=== PATIENT | female | born 1940 | race Caucasian/White ===

== ENCOUNTER 2024-11-07 21:05 | Emergency (ER) | payer OTHER, SELFPAY ==
[2024-11-07 21:47] VITALS: BP 181/102; PULSE 114; RESP 17; TEMP 36.7; O2SAT 98
--- NOTE | 2024-11-07 22:04 | XR_ITS ---
Examination: CT cervical spine without contrast 2-D sagittal reconstructions 2-D coronal reconstructions 3-D reconstructions. Exam date and time:November 07, 2024 11:50 PM INDICATIONS: Patient fell today with injury to the neck, neck pain CTDI:vol (mGy) 9 DLP: (mGycm) 198 Technique: Multiple 2 mm axial sections of the cervical spine have been obtained. The coronal and sagittal reconstructions have been obtained. 3-D reconstructions have been obtained. Low dose protocols were performed. One or more of the following dose reduction techniques were used; automated exposure control, adjustment of the mA and/or KV according to patient size, use of iterative reconstruction technique. Findings: Axial sections demonstrate intact base of the skull. C1 exhibit satisfactory relationship to the odontoid. No acute cervical vertebral body fracture seen. Alignment posterior spinous processes satisfactory. Impression: No acute cervical fracture.
--- NOTE | 2024-11-07 22:04 | XR_ITS ---
Examination: CT brain head without contrast. 2-D sagittal coronal reconstructions Date and time of exam:November 07, 2024 11:50 PM Comparison May 17, 2020 INDICATIONS: Patient fell today with image of the head, head pain CTDI: vol (mGy):53 DLP: (mGycm):1114 Technique: Multiple CT axial sections of the brain have been obtained, 5 mm slice thickness. Contrast has not been administered. 2-D sagittal, coronal reconstructions have been obtained Low dose protocols were performed. One or more of the following dose reduction techniques were used; automated exposure control, adjustment of the mA and/or KV according to patient size, use of iterative reconstruction technique. Findings: No significant ventricular enlargement. 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 No mass effect or midline shift Basal cisterns are not remarkable. Fourth ventricle is midline. Cranial vault intact. Impression: Negative for acute hemorrhage, mass effect or midline shift
--- NOTE | 2024-11-07 22:05 | PD.EDFALL ---
ED Fall Injury RME/HPI General Chief Complaint: Fall Stated Complaint: FELL , LAC TO LEFT EYE BROW AREA Time Seen by Provider: 11/07/24 22:01 Arrival date/time: 11/07/24 21:05 RME / HPI RME / HPI Narrative: 84-year-old female patient came in for evaluation regarding fall. Apparently patient lost balance and fell sustaining 1 cm nongaping laceration to left eyebrow. Patient also complained of lateral neck pain described as dull ache severity mild. Denies any nausea vomiting denies any LOC. Denies any other complaints patient is ambulatory. No medication was taken prior to arrival. Related Data Home Medications ?Medication ?Instructions ?Recorded ?Confirmed ascorbic acid (vitamin C) 500 mg 500 mg PO QDAY 05/17/20 05/17/20 capsule,extended release (Vitamin C) cholecalciferol (vitamin D3) 50 50 mcg PO QDAY 05/17/20 05/17/20 mcg (2,000 unit) capsule (Vitamin D3) dabigatran etexilate 150 mg 150 mg PO BID 05/17/20 05/17/20 capsule (Pradaxa) digoxin 125 mcg (0.125 mg) tablet 125 mcg PO QDAY 05/17/20 05/17/20 donepezil 10 mg tablet 10 mg PO QDAY 05/17/20 05/17/20 estradiol 0.5 mg tablet 0.5 mg PO QDAY 05/17/20 05/17/20 glucosamine sulfate 750 mg tablet 750 mg PO QDAY 05/17/20 05/17/20 levothyroxine 50 mcg tablet 50 mcg PO QDAY 05/17/20 05/17/20 magnesium 500 mg tablet 15 mg PO QDAY 05/17/20 05/17/20 omega 3-pup-xoh-fish oil 1,200 mg 1,200 cap PO DAILY 05/17/20 05/17/20 (144 mg-216 mg) capsule (Fish Oil) oxybutynin chloride 5 mg tablet 5 mg PO BID 05/17/20 05/17/20 sotalol 80 mg tablet 80 mg PO BID 05/17/20 05/17/20 turmeric 400 mg capsule 400 mg PO DAILY 05/17/20 05/17/20 vitamin B complex 1 tab PO QDAY 05/17/20 05/17/20 zinc 50 mg capsule 50 mg PO QDAY 05/17/20 05/17/20 Allergies Allergy/AdvReac Type Severity Reaction Status Date / Time adhesive tape Allergy Severe Hives Verified 11/07/24 21:08 Sulfa (Sulfonamide Allergy Severe Anaphylaxis Verified 11/07/24 21:08 Antibiotics) Review of Systems Review of Systems Narrative Review of Systems: Review of system reviewed and within normal limits except mentioned in HPI ED Exam Narrative Physical exam: VITAL SIGNS: Reviewed. GENERAL APPEARANCE: Alert and interactive, follows commands, no acute distress, HEAD AND FACE: 1 cm nongaping laceration left eyebrow ENT: PERRL, pink conjunctivitis, eyelid no trauma, Mucous membrane moist. NECK: Supple, lateral neck tenderness on the left, no nuchal rigidity. CHEST: No tenderness, no crepitus, no paradoxical movement, no retractions. LUNGS: Clear, well ventilated, symmetric, no rales, no wheezing, no ronchi, no stridor, good breath sounds bilaterally. HEART: Regular rate, regular rhythm, no murmur, no gallops. ABDOMEN: Soft, positive bowel sounds, nondistended, no guarding, nontender, no rebound, no masses, RECTAL: Deferred. GENITAL: Deferred. NEUROLOGICAL: Gross motor function intact sensory function intact, Appropriate for age. MUSCULOSKELETAL: low back nontender, full range of motion. EXTREMITIES: Nontender, full range of motion. SKIN: Color pink, dry, no rash, no lacerations, no abrasions, no contusions. LYMPHATICS: Deferred. Course Orders Category Date Time Status CT cervical spine wo con Stat Exams 11/07/24 22:[address] head/brain wo con Stat Exams 11/07/24 22:04 Ordered TET,DIP/PERT AC (Adult)-Tdap [Boostrix Adult (Tdap) Med 11/07/24 22:04 Once Vacc] 0.5 ml IMI .ONCE ONE Vital Signs Vital signs: Vital Signs Temperature 98.1 F 11/07/24 21:47 Pulse Rate 114 H 11/07/24 21:47 Respiratory Rate 17 11/07/24 21:47 Blood Pressure 181/102 H 11/07/24 21:47 Pulse Oximetry (%) 98 11/07/24 21:47 Oxygen Delivery Method Room Air 11/07/24 21:47 Fall MDM Narrative MDM Narrative:: 84-year-old female patient came in for evaluation regarding fall. Apparently patient lost balance and fell sustaining 1 cm nongaping laceration to left eyebrow. Patient also complained of lateral neck pain described as dull ache severity mild. Denies any nausea vomiting denies any LOC. Denies any other complaints patient is ambulatory. No medication was taken prior to arrival. Discharge Plan Prescriptions/Referrals Prescriptions/Med Rec: No Action magnesium 500 mg Tablet 15 mg PO QDAY sotalol 80 mg Tablet 80 mg PO BID donepezil 10 mg Tablet 10 mg PO QDAY levothyroxine 50 mcg Tablet 50 mcg PO QDAY ascorbic acid (vitamin C) [Vitamin C] 500 mg Capsule, Extended Release 500 mg PO QDAY vitamin B complex [Super B Complex] Tablet 1 tab PO QDAY digoxin 125 mcg (0.125 mg) Tablet 125 mcg PO QDAY estradiol 0.5 mg Tablet 0.5 mg PO QDAY oxybutynin chloride 5 mg Tablet 5 mg PO BID glucosamine sulfate [Glucosamine] 750 mg Tablet 750 mg PO QDAY zinc 50 mg Capsule 50 mg PO QDAY cholecalciferol (vitamin D3) [Vitamin D3] 50 mcg (2,000 unit) Capsule 50 mcg PO QDAY omega 2-ssi-lmw-fish oil [Fish Oil] 1,200 (144-216) mg Capsule 1,200 cap PO DAILY Pradaxa 150 mg Capsule 150 mg PO BID turmeric 400 mg Capsule 400 mg PO DAILY Referrals: No Primary/Family,Physician [Primary Care Provider] - In 1 week Patient/Caregiver Discharge Instructions Print Language: Argentine
--- NOTE | 2024-11-07 22:13 | PD.EDRME ---
Rapid Medical Screening Exam RME Arrival date/time: 11/07/24 21:05 Chief Complaint: Fall Time Seen by Provider: 11/07/24 22:01 Vital signs: Vital Signs Temperature 98.1 F 11/07/24 21:47 Pulse Rate 114 H 11/07/24 21:47 Respiratory Rate 17 11/07/24 21:47 Blood Pressure 181/102 H 11/07/24 21:47 Pulse Oximetry (%) 98 11/07/24 21:47 Oxygen Delivery Method Room Air 11/07/24 21:47 RME Narrative: 84-year-old female patient with significant history of chronic A-fib hypothyroidism hypertension came in for evaluation regarding fall. Apparently patient lost balance and fell sustaining 1 cm nongaping laceration to left eyebrow. Patient also complained of lateral neck pain described as dull ache severity mild. Denies any nausea vomiting denies any LOC. Denies any other complaints patient is ambulatory. No medication was taken prior to arrival. She is on Pradaxa
--- NOTE | 2024-11-07 22:18 | XR_ITS ---
Examination: AP chest single view Technique one AP portable upright chest single view Date and time: November 07, 2024 1041 hours COMPARISON: November 25, 2018 INDICATIONS: Weakness shortness of breath today. FINDINGS: Mild enlargement cardiac contour Moderate vascular congestion Cardiac leads stable position No lobar pneumonia Moderate osteopenia IMPRESSION: Moderate vascular congestion
[2024-11-07 22:44] LABS: Collection Type, Urine Clean Catch; RBC,Urine 0 /hpf (0-3)
[2024-11-07] MEDS: DIPHTH,PERTUSS(ACELL),TET VAC 0.5 ML SYR- ADULT IMi (23:00)
[2024-11-07 23:01] LABS: Bacteria,Urine 4+; Bilirubin,Urine Negative (Negative); Blood,Urine Negative (Negative); Calcium Oxalate Crystals,Urine 3+; Clarity,Urine Turbid (Clear/Hazy); Color,Urine Yellow (Lt Yel-Yel); Glucose, Urine Negative (Negative); Hyaline Casts,Urine < 1 /hpf (0-1); Ketones,Urine Trace (Negative); Leukocyte Esterase,Urine Positive (Negative); Nitrite,Urine Positive (Negative); Protein,Urine 2+ (Neg - Trace); Specific Gravity,Urine 1.029 (1.001-1.035); Squamous Epithelial Cell,Urine 10 /hpf (0-5); Urobilinogen,Urine Negative mg/dL (0.0-1.0); WBC,Urine 28 /hpf (0-5)
[2024-11-07 23:02] LABS: Culture Indicated,Urine Yes
[2024-11-07] MEDS: LIDOCAINE HCL 1% 20 ML VIAL 5 ML INFL (23:07)
[2024-11-07 23:10] LABS: Basophils # (Auto) 0.1 Thou/mm3 (0.0-0.2); Basophils % (Auto) 1 % (0-2.5); Eosinophils # (Auto) 0.1 Thou/mm3 (0.0-0.5); Eosinophils % (Auto) 2 % (0-10); Hematocrit 27.7 % (36.0-46.0); Immature Granulocytes % (Auto) 0 % (0-0); Immature Granulocytes Auto 0.04 Thou/mm3 (0.00-0.00); Lymphocytes # (Auto) 1.2 Thou/mm3 (1.0-4.8); Lymphocytes % (Auto) 13 % (10-50); Mean Corpuscular HGB Conc 27.8 g/dl (31.0-37.0); Mean Corpuscular Hemoglobin 17.5 pg (25.0-35.0); Mean Corpuscular Volume 63 fL (80-100); Monocytes # (Auto) 0.7 Thou/mm3 (0.0-0.8); Monocytes % (Auto) 7 % (0-12); Neutrophils # (Auto) 7.3 Thou/mm3 (1.8-7.7); Neutrophils % (Auto) 77 % (37-80); Nucleated Red Blood Cell % 0 /100 WBC (0); Platelet Count 388 Thou/mm3 (140-440); RDW Standard Deviation 48.1 fL (36.4-46.3); White Blood Count 9.5 Thou/mm3 (3.6-11.0)
[2024-11-07 23:11] VITALS: BP 126/84; PULSE 115; RESP 14; TEMP 37; O2SAT 99
[2024-11-07 23:12] LABS: Hemoglobin 7.7 g/dL (12.0-16.0)
[2024-11-07 23:28] LABS: Partial Thromboplastin Time 24.1 Seconds (22.0-36.0); Prothrombin Time 10.9 Seconds (9.0-12.2)
[2024-11-07 23:43] LABS: Path Review Blood Smear Sent to Pathologist
[2024-11-07 23:56] LABS: Amphetamine/Methamp Scrn,U Negative (Negative); Barbiturate Screen,Urine Negative (Negative); Benzodiazepines Screen,Urine Negative (Negative); Benzoylecgonine Screen, Ur Negative (Negative); Fentanyl Screen,Urine Negative (Negative); Opiate Screen,Urine Negative (Negative); THC Screen,Urine Negative (Negative)
[2024-11-08 00:01] LABS: Ammonia 16 uMol/L (11-32)
[2024-11-08 00:06] LABS: T4 (Thyroxine) 5.3 mcg/dL (4.5-10.9)
[2024-11-08 00:17] LABS: Acetaminophen < 2.0 mcg/mL (10.0-20.0); Alanine Aminotransferase < 7 U/L (10-49); Albumin, Serum 4.3 gm/dL (3.4-4.8); Alkaline Phosphatase 84 U/L (46-116); Anion Gap 10 (7-16); Aspartate Amino Transferase 13 U/L (0-34); BUN/Creatinine Ratio 19 Ratio (12-20); Bilirubin,Total 0.5 mg/dL (0.3-1.2); Blood Urea Nitrogen 19 mg/dL (9-23); Calcium 9.5 mg/dL (8.3-10.6); Calcium (Corrected) 9.5 mg/dL (8.5-10.1); Carbon Dioxide 22.6 mMol/L (20.0-31.0); Chloride 110 mMol/L (98-107); Globulin 2.1 gm/dL (2.3-3.5); Glucose 139 mg/dL (74-106); Osmolality,Calculated 289 (275-295); Potassium 3.5 mMol/L (3.4-5.1); Salicylate < 3.0 mg/dL; Sodium 143 mMol/L (136-145); Thyroid Stimulating Hormone 3.73 uIU/mL (0.55-4.78); Total Protein 6.4 gm/dL (5.7-8.2); Troponin I < 0.020 ng/mL (0.0-0.045); eGFR 55 See Note
--- NOTE | 2024-11-08 00:30 | PD.EDFALL ---
ED Fall Injury RME/HPI General Chief Complaint: Fall Stated Complaint: FELL , LAC TO LEFT EYE BROW AREA Time Seen by Provider: 11/07/24 22:01 Arrival date/time: 11/07/24 21:05 RME / HPI RME / HPI Narrative: 84-year-old female patient with significant history of chronic A-fib hypothyroidism hypertension came in for evaluation regarding fall. patient lost balance and fell sustaining 1 cm nongaping laceration to left eyebrow. Patient also complained of lateral neck pain described as dull ache severity mild. Denies any nausea vomiting denies any LOC. Denies any other complaints patient is ambulatory. No medication was taken prior to arrival. She is on Pradaxa DR. 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 Denies nausea, vomiting, and LOC. No other concerns or complaints expressed at this time. Related Data Home Medications ?Medication ?Instructions ?Recorded ?Confirmed ascorbic acid (vitamin C) 500 mg 500 mg PO QDAY 05/17/20 05/17/20 capsule,extended release (Vitamin C) cholecalciferol (vitamin D3) 50 50 mcg PO QDAY 05/17/20 05/17/20 mcg (2,000 unit) capsule (Vitamin D3) dabigatran etexilate 150 mg 150 mg PO BID 05/17/20 05/17/20 capsule (Pradaxa) digoxin 125 mcg (0.125 mg) tablet 125 mcg PO QDAY 05/17/20 05/17/20 donepezil 10 mg tablet 10 mg PO QDAY 05/17/20 05/17/20 estradiol 0.5 mg tablet 0.5 mg PO QDAY 05/17/20 05/17/20 glucosamine sulfate 750 mg tablet 750 mg PO QDAY 05/17/20 05/17/20 levothyroxine 50 mcg tablet 50 mcg PO QDAY 05/17/20 05/17/20 magnesium 500 mg tablet 15 mg PO QDAY 05/17/20 05/17/20 omega 9-qqp-xzb-fish oil 1,200 mg 1,200 cap PO DAILY 05/17/20 05/17/20 (144 mg-216 mg) capsule (Fish Oil) oxybutynin chloride 5 mg tablet 5 mg PO BID 05/17/20 05/17/20 sotalol 80 mg tablet 80 mg PO BID 05/17/20 05/17/20 turmeric 400 mg capsule 400 mg PO DAILY 05/17/20 05/17/20 vitamin B complex 1 tab PO QDAY 05/17/20 05/17/20 zinc 50 mg capsule 50 mg PO QDAY 05/17/20 05/17/20 Previous Rx's ?Medication ?Instructions ?Recorded neomycin-bacitracn Zn-polymyx 3.5 1 applic topical BID #14 grams 11/08/24 mg-400 unit-5,000 unit/gram top oint (First Aid Antibiotic) Allergies Allergy/AdvReac Type Severity Reaction Status Date / Time adhesive tape Allergy Severe Hives Verified 11/07/24 21:08 Sulfa (Sulfonamide Allergy Severe Anaphylaxis Verified 11/07/24 21:08 Antibiotics) Review of Systems Review of Systems Systems Reviewed: All systems reviewed, normal except as documented Past Medical History Past Medical History NEUROLOGIC: Positive Neurological Disorders CARDIAC: Positive Cardiac Disorders, Myocardial Infarction, Cardiac Arrhythmia, Atrial Fibrillation, Atherosclerotic Heart Disease, Congestive Heart Failure and Hypertension GASTROINTESTINAL: Positive Gastrointestinal Disorders, Gastrointestinal Bleed, Hiatal Hernia and Gastroesophageal Reflux Disease GENITOURINARY: Positive Genitourinary Disorders ENDOCRINE: Positive Hypothyroidism PSYCHO/SOCIAL: Positive Depression OTHER HISTORY: Positive Hospitalization and Cancer Surgical History SURGICAL: Positive Cardiac Catheterization, Tonsillectomy, Joint Replacement and Hysterectomy ED Exam Narrative Physical exam: GEN. APPEARANCE: The patient is alert awake oriented X-3 in no distress, lying down comfortably, does not look ill/toxic. Patient has good eye contact. Patient is cooperative. VITALS: All vitals were reviewed and the pulse ox is 99% on room air which is normal according to my interpretation. HEENT: Normocephalic. Pupils are equal and reactive. Oral mucosa is moist. Patent Nares. No septal hematoma. NECK: Supple, nontender, no thyromegaly, no meningismus, no JVD CHEST: Symmetrical, atraumatic, and with equal expansion , Nontender on palpation no deformity and no crepitus. CARDIOVASCULAR: Heart regular rhythm no murmur or gallop rub or extra beats. LUNGS: Clear to auscultation bilaterally with symmetrical chest rise. No laboring tachypnea or wheezing. No intercostal subcostal retraction. No rales and no rhonchi. ABDOMEN: Soft, flat, nontender to palpation, no guarding or rebound tenderness. There are no abnormal masses palpated. Active and normal bowel sounds. EXTREMITIES: Nontender. No edema. No cyanosis. Patient is able to move all 4 extremities well, with full ROM and good CSM. Ambulating without difficulty. SKIN: Warm and dry, no jaundice or rashes noted. 3 cm multi-edged, complicated laceration to the left brow. MUSCULOSKELETAL: No lumbar or midline bony tenderness. There is no CVA tenderness. No paraspinal muscle spasm or tenderness. NEURO: Patient is VASQUEZ x 4, Cranial nerves II through XII grossly intact. There is no focal neurologic deficits noted. 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 PSYCHIATRIC: Patient is in normal mood and affect. Course Course Course Narrative: CXR is ordered for determining the etiology of weakness. Quality Measures none Orders Category Date Time Status Bedside COVID-19 Antigen Test NOW Care 11/07/24 22:18 Completed Bedside Influenza A&B Antigen Test NOW Care 11/07/24 22:18 Completed EKG (ED ONLY) *Do not use* NOW Care 11/07/24 22:[address] cervical spine wo con Stat Exams 11/07/24 22:[address] head/brain wo con Stat Exams 11/07/24 22:04 Completed CXR [XR chest 1V] Stat Exams 11/07/24 22:18 Completed EKG (ED Only) Stat Exams 11/07/24 22:13 Ordered Acetaminophen Stat Lab 11/07/24 22:47 Completed Ammonia Stat Lab 11/07/24 22:47 Completed CBC Stat Lab 11/07/24 22:47 Completed CMP [Comprehensive Metabolic Panel] Stat Lab 11/07/24 22:47 Completed Drug Screen,Urine Stat Lab 11/07/24 22:20 Completed INR [Prothrombin Time with INR] Stat Lab 11/07/24 22:47 Completed PTT [Partial Thromboplastin Time] Stat Lab 11/07/24 22:47 Completed Path Review Blood Smear Stat Lab 11/07/24 22:47 Completed Salicylate Stat Lab 11/07/24 22:47 Completed T4 (Thyroxine) Stat Lab 11/07/24 22:47 Completed Thyroid Stimulating Hormone Stat Lab 11/07/24 22:47 Completed Troponin I Stat Lab 11/07/24 22:47 Completed UA, C/S IF [Urinalysis, C/S if Indicated] Stat Lab 11/07/24 22:20 Completed Urine Culture Stat Lab 11/07/24 22:20 Completed Bacitracin Oint pkt Med 11/08/24 00:44 Discontinued 1 gm TOP X1 ONE Diltiazem Inj [Cardizem Inj] Med 11/07/24 22:22 Discontinued 10 mg IV X1 ONE Lidocaine 1% 20 ml [Xylocaine 1% 20 ML] Med 11/07/24 22:18 Discontinued 5 ml INFL X1 ONE TET,DIP/PERT AC (Adult)-Tdap [Boostrix Adult (Tdap) Med 11/07/24 22:04 Discontinued Vacc] 0.5 ml IMI .ONCE ONE cefTRIAXone/D5w 1gm IV premix [Rocephin/D5w 1gm IV Med 11/08/24 00:31 Discontinued premix] 1 gm in 50 ml IV NOW Reevaluation(s) Reevaluation #1: Patient is stable, not in distress, at baseline neurologically, and ambulating without difficulty. Time: 00:32 Vital Signs Vital signs: Vital Signs Temperature 98.1 F 11/07/24 21:47 Pulse Rate 114 H 11/07/24 21:47 Respiratory Rate 17 11/07/24 21:47 Blood Pressure 181/102 H 11/07/24 21:47 Pulse Oximetry (%) 98 11/07/24 21:47 Oxygen Delivery Method Room Air 11/07/24 21:47 Procedures -ED Laceration Laceration 1: Site: face (brow) Side (If applicable): left Size (cm): 3 Description: linear Depth: simple, single layer Local Anesthetic: lidocaine 1% Pre-repair: wound explored, irrigated extensively and wound margins revised Skin layer closed with: vicryl Suture size (cm): 5-0 Number of sutures: 8 Technique: simple, interrupted Fall MDM Narrative MDM Narrative:: Scribe Attestation: Anna Youngblood, am scribing for and in the presence of Dr. Meza. Provider Notation: Although this document has been carefully reviewed, there may still be some phonetic and other typographical errors.? These errors are purely grammatical due to imperfections in the software program and should not be construed in any way to? compromise the substance of the patient's medical care during this visit. 0026: Patient converted out of RvR on her own, no need for medication. No hematological or metabolic abnormalities.l? Troponin not elevated. UA with evidence of UTI. Will provide her with abx. Cervical spine and head/brain CT unremarkable. CXR shows moderate vascular congestion. Will repair laceration. Patient data External records reviewed:: [facility] previous records (Reviewed prior ED records from 10/15/22. Patient was seen for Forehead laceration.) and EMS form Clinical information provided by:: EMS Social determinants that could affect healthcare access:: none Patient has the following chronic illnesses:: Cardiac Arrhythmia, Atrial Fibrillation, Atherosclerotic Heart Disease, Congestive Heart Failure, Hypertension, Gastrointestinal Bleed, Hiatal Herniam, Gastroesophageal Reflux Disease, Hypothyroidism, Depression How is presenting disease/condition affected by chronic disease/condition?: exacerbated by Evaluation data The following diagnostics were reviewed and interpreted by me:: lab results, radiology exam(s) and EKG tracing(s) (EKG done at 2205, 120 bpm, atrial fibrillation with rapid ventricular response, normal QT, non-specific T-wave changes, not a cardiac alert. Interpreted by Dr. Taylor Meza.) Lab and/or radiology exams considered but not ordered:: None Interpretation Summary: RADIOLOGY Chest X-Ray: FINDINGS: Mild enlargement cardiac contour Moderate vascular congestion Cardiac leads stable position No lobar pneumonia Moderate osteopenia IMPRESSION: Moderate vascular congestion Head CT: Findings: No significant ventricular enlargement. 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 No mass effect or midline shift Basal cisterns are not remarkable. Fourth ventricle is midline. Cranial vault intact. Impression: Negative for acute hemorrhage, mass effect or midline shift Cervical Spine CT: Findings: Axial sections demonstrate intact base of the skull. C1 exhibit satisfactory relationship to the odontoid. No acute cervical vertebral body fracture seen. Alignment posterior spinous processes satisfactory. Impression: No acute cervical fracture. Medications / Prescriptions Medications or Prescriptions considered but not ordered:: None Medication administrations:: Medication Administration History Discontinued Medications Bacitracin (Bacitracin Oint 1 Gm Packet) 1 gm TOP X1 ONE Stop: 11/08/24 00:45 Last Admin: 11/08/24 00:55 Dose: 1 gm Documented By: DT Diltiazem HCl (Diltiazem Inj 5 Mg/Ml Vial 5 Ml) 10 mg IV X1 ONE Stop: 11/07/24 22:23 Last Admin: 11/07/24 23:16 Dose: Not Given Documented By: DT Non-Admin Reason: Cancelled by Provider Diphtheria/Tetanus/Acell Pertussis (Diphth,Pertuss(Acell),Tet Vac 0.5 Ml Syr- Adult) 0.5 ml IMi .ONCE ONE Stop: 11/07/24 22:05 Last Admin: 11/07/24 23:00 Dose: 0.5 ml Documented By: ROXANN Ceftriaxone Sodium/Dextrose (Rocephin/D5w 1gm Iv Premix) 1 gm in 50 mls @ 100 mls/hr IV NOW ONE Stop: 11/08/24 01:00 Last Infusion: 11/08/24 01:23 Dose: Infused Documented By: Admin: 11/08/24 00:52 Dose: 100 mls/hr Documented By: ROXANN Lidocaine HCl (Lidocaine Hcl 1% 20 Ml Vial) 5 ml INFL X1 ONE Stop: 11/07/24 22:19 Last Admin: 11/07/24 23:07 Dose: 5 ml Documented By: ROXANN Comments: administered by dr franklin See above if any. Consultations Consultation(s) initiated? (list below): No Diagnosis Fall Differential Diagnosis: syncope, dislocation of shoulder region, fracture of wrist, compression fracture, concussion with loss of consciousness, concussion without loss of consciousness and other (Atrial Fibrillation RvR) Most likely diagnosis given after review of the tests above:: Atrial fibrillation, Laceration, Head trauma, Laceration Admission Indicated Admission indicated?: not indicated Explain why admission is indicated or not indicated:: Patient does no meet admission criteria. Admission Request Was there a request for admission?: No Disposition Plan Disposition Plan: Discharge Discharge Attestation Discharge Attestation: The patient and all family members were given an opportunity to ask questions and understood the discharge instructions. Discharge instructions specifically effects, indications for sooner follow up or return to the emergency department, and the expected course of current diagnosis. Patient condition: Stable Discharge Plan Plan Patient Disposition: HOME (Self Care) Prescriptions/Referrals Prescriptions/Med Rec: New First Aid Antibiotic 3.5mg-400 unit- 5,000 unit/gram ointment 1 applic topical BID Qty: 14 0RF No Action magnesium 500 mg Tablet 15 mg PO QDAY sotalol 80 mg Tablet 80 mg PO BID donepezil 10 mg Tablet 10 mg PO QDAY levothyroxine 50 mcg Tablet 50 mcg PO QDAY ascorbic acid (vitamin C) [Vitamin C] 500 mg Capsule, Extended Release 500 mg PO QDAY vitamin B complex [Super B Complex] Tablet 1 tab PO QDAY digoxin 125 mcg (0.125 mg) Tablet 125 mcg PO QDAY estradiol 0.5 mg Tablet 0.5 mg PO QDAY oxybutynin chloride 5 mg Tablet 5 mg PO BID glucosamine sulfate [Glucosamine] 750 mg Tablet 750 mg PO QDAY zinc 50 mg Capsule 50 mg PO QDAY cholecalciferol (vitamin D3) [Vitamin D3] 50 mcg (2,000 unit) Capsule 50 mcg PO QDAY omega 8-ene-fus-fish oil [Fish Oil] 1,200 (144-216) mg Capsule 1,200 cap PO DAILY Pradaxa 150 mg Capsule 150 mg PO BID turmeric 400 mg Capsule 400 mg PO DAILY Referrals: No Primary/Family,Physician [Primary Care Provider] - In 1 week Problem List Clinical Impression: Face lacerations, Head trauma, Atrial fibrillation, Laceration, Ground-level fall Patient/Caregiver Discharge Instructions Discharge Activity: activity as tolerated Education Materials: AFL/Afib, ED Laceration, Face: Stitches or Tape Additional Instructions: Your EKG today showed that you had an arrhythmia called atrial fibrillation. It corrected on its own. It is important that you establish care with a pm head cook to discuss this. Per chart review it appears that at 1 point you were on medications for management of this arrhythmia. I recommend that you talk to your primary care doctor get evaluation for this concern. Print Language: Italian Stand Alone Forms: [employer]ona Award Info., Patient Portal Info Letter
[2024-11-08] MEDS: cefTRIAXone/D5w 1gm IV premix 1 GM/50 ML BAG IV (00:52)
[2024-11-08] MEDS: BACITRACIN OINT 1 GM PACKET TOP (00:55)
[2024-11-08 01:26] VITALS: PULSE 89; RESP 12; TEMP 37; O2SAT 99
== END 2024-11-08 01:27 | disposition home or self-care (01) ==
PROVIDERS: Nurse Practitioner Family; Emergency Provider Emergency Medicine
DX: S01.112A Laceration without foreign body of left eyelid and periocular area, initial encounter (principal); S01.81XA Laceration without foreign body of other part of head, initial encounter; I48.91 Unspecified atrial fibrillation; R09.89 Other specified symptoms and signs involving the circulatory and respiratory systems; I25.10 Atherosclerotic heart disease of native coronary artery without angina pectoris; I50.9 Heart failure, unspecified; I11.0 Hypertensive heart disease with heart failure; W18.30XA Fall on same level, unspecified, initial encounter; S19.9XXA Unspecified injury of neck, initial encounter; S09.90XA Unspecified injury of head, initial encounter; Z79.01 Long term (current) use of anticoagulants; Z23 Encounter for immunization
CPT/HCPCS: 12013; 36415; 70450; 71045; 72125; 80053; 80307; 80329; 81001; 82140; 84436; 84443; 84484; 85025; 85610; 85730; 87077; 87086; 87186; 87400; 87811; 90471; 90715; 93005; 96365; 99284; J0696; J3490; A9270; G0480